=== PATIENT | male | born 2000 | race Caucasian/White ===

== ENCOUNTER 2021-09-04 18:25 | Emergency (ER) | payer BC ==
[~2021-09-04] VITALS: Ht 172.7 cm; Wt 63.5 kg
[2021-09-04 19:02] LABS: BASOPHILS % (AUTO) 0 % (0-10); EOSINOPHILS # (AUTO) 0.1 10^3/uL (0.0-0.3); EOSINOPHILS % (AUTO) 1 % (0-10); HEMATOCRIT 43 % (40-54); HEMOGLOBIN 14.5 g/dL (13.3-17.7); LYMPHOCYTES # (AUTO) 1.4 10^3/uL (1.0-4.0); LYMPHOCYTES % (AUTO) 17 % (12-44); MEAN CORPUSCULAR HEMOGLOBIN 32 pg (25-34); MEAN CORPUSCULAR HGB CONC 34 g/dL (32-36); MEAN CORPUSCULAR VOLUME 94 fL (80-99); MEAN PLATELET VOLUME 9.7 fL (9.0-12.2); MONOCYTES # (AUTO) 0.5 10^3/uL (0.0-1.0); MONOCYTES % (AUTO) 6 % (0-12); NEUTROPHILS # (AUTO) 6.2 10^3/uL (1.8-7.8); NEUTROPHILS % (AUTO) 75 % (42-75); PLATELET COUNT 270 10^3/uL (130-400); WHITE BLOOD COUNT 8.2 10^3/uL (4.3-11.0)
[2021-09-04 19:19] LABS: ALANINE AMINOTRANSFERASE 18 U/L (0-55); ALBUMIN 5.4 GM/DL (3.2-4.5); ALKALINE PHOSPHATASE 127 U/L (40-136); BILIRUBIN,TOTAL 0.2 MG/DL (0.1-1.0); BUN/CREATININE RATIO 11; CALCIUM 10.1 MG/DL (8.5-10.1); CARBON DIOXIDE 26 MMOL/L (21-32); CHLORIDE 99 MMOL/L (98-107); CREATININE SERUM 1.51 MG/DL (0.60-1.30); GFR ESTIMATED 67; GLUCOSE 91 MG/DL (70-105); MAGNESIUM 1.9 MG/DL (1.6-2.4); SODIUM 138 MMOL/L (135-145); TOTAL PROTEIN 8.4 GM/DL (6.4-8.2)
[2021-09-04] MEDS ORDERED: NS IV 1000 ML 1,000 ML IV SCH (20:15)
--- NOTE | 2021-09-04 20:20 | ED General ---
General Chief Complaint: Dizziness/Syncope Stated Complaint: DIZZY,COLD CHILLS,LIGHTHEADED Nursing Triage Note: PT AMBULATE TO ROOM FS03 WITH C/O DIZZYNESS X1 HOUR. Source of Information: Patient History of Present Illness Date Seen by Provider: Sep 04, 2021 Time Seen by Provider: 19:00 Initial Comments Patient is a 21-year-old male with history of chronic daily alcohol use who presents with dizziness upon sitting outside of his bed. Symptoms lasted an hour. Patient reports dizziness with near syncope. Denies chest pain palpitations, shortness of breath. No headache, blurred vision, nausea vomiting or diarrhea. Patient states he drinks in excess of 14 alcoholic beverages daily and has done so at least for the past 3 years. States his symptoms were worse today after working. 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 No other chronic medical illnesses. No other symptoms or complaints. Timing/Duration: 1-3 Hours Severity: Mild Modifying Factors: improves with Other Associated Systoms: Other Allergies and Home Medications Allergies Coded Allergies: No Known Drug Allergies (Unverified , 09/04/21) Patient Home Medication List Home Medication List Reviewed: Yes Review of Systems Review of Systems Constitutional: see HPI EENTM: see HPI Respiratory: see HPI Cardiovascular: see HPI Gastrointestinal: see HPI Genitourinary: see HPI Musculoskeletal: see HPI Skin: see HPI Psychiatric/Neurological: See HPI Hematologic/Lymphatic: See HPI Immunological/Allergic: see HPI All Other Systems Reviewed Negative Unless Noted: Yes Past Phzlfyg-Mfujtm-Ywqcce Hx Patient Social History Tobacco Use?: Yes Smoking Status: Never a Smoker Smokeless Tobacco Frequency: Never a User Use of E-Cig and/or Vaping dev: Yes Use of E-Cig and/or Vaping Cristhian: Current Everyday User Substance use?: No Alcohol Use?: Yes Alcohol type: Beer Alcohol Frequency: Daily Pt feels they are or have been: No Physical Exam Vital Signs Vital Signs - First Documented 09/04/21 18:30 Temp 36.6 Pulse 90 Resp 16 B/P (MAP) 150/91 (110) O2 Delivery Room Air Capillary Refill : Less Than 3 Seconds Height, Weight, BMI Height: '" Weight: lbs. oz. kg; 21.00 BMI Method: General Appearance: No Apparent Distress, WD/WN, Anxious Eyes: Bilateral Eye Normal Inspection, Bilateral Eye PERRL, Bilateral Eye EOMI HEENT: PERRL/EOMI, Normal ENT Inspection, Pharynx Normal Neck: Non Tender Respiratory: Lungs Clear Cardiovascular: Regular Rate, Rhythm Gastrointestinal: Non Tender, Soft Neurologic/Psychiatric: Alert, Oriented x3 Focused Exam Sepsis Stage: Ruled Out Progress/Results/Core Measures Suspected Sepsis SIRS Temperature: Pulse: 90 Respiratory Rate: 16 Laboratory Tests 09/04/21 18:49: White Blood Count 8.2 Blood Pressure 150 /91 Mean: 110 Laboratory Tests 09/04/21 18:49: Creatinine 1.51H, Platelet Count 270, Total Bilirubin 0.2 Results/Orders Lab Results Laboratory Tests Test 09/04/21 18:49 Range/Units White Blood Count 8.2 4.3-11.0 10^3/uL Red Blood Count 4.56 4.30-5.52 10^6/uL Hemoglobin 14.5 13.3-17.7 g/dL Hematocrit 43 40-54 % Mean Corpuscular Volume 94 80-99 fL Mean Corpuscular Hemoglobin 32 25-34 pg Mean Corpuscular Hemoglobin Concent 34 32-36 g/dL Red Cell Distribution Width 12.8 10.0-14.5 % Platelet Count 270 130-400 10^3/uL Mean Platelet Volume 9.7 9.0-12.2 fL Immature Granulocyte % (Auto) 0 % Neutrophils (%) (Auto) 75 42-75 % Lymphocytes (%) (Auto) 17 12-44 % Monocytes (%) (Auto) 6 0-12 % Eosinophils (%) (Auto) 1 0-10 % Basophils (%) (Auto) 0 0-10 % Neutrophils # (Auto) 6.2 1.8-7.8 10^3/uL Lymphocytes # (Auto) 1.4 1.0-4.0 10^3/uL Monocytes # (Auto) 0.5 0.0-1.0 10^3/uL Eosinophils # (Auto) 0.1 0.0-0.3 10^3/uL Basophils # (Auto) 0.0 0.0-0.1 10^3/uL Immature Granulocyte # (Auto) 0.0 0.0-0.1 10^3/uL Sodium Level 138 135-145 MMOL/L Potassium Level 4.0 3.6-5.0 MMOL/L Chloride Level 99 98-107 MMOL/L Carbon Dioxide Level 26 21-32 MMOL/L Anion Gap 13 5-14 MMOL/L Blood Urea Nitrogen 17 7-18 MG/DL Creatinine 1.51 H 0.60-1.30 MG/DL Estimat Glomerular Filtration Rate 67 BUN/Creatinine Ratio 11 Glucose Level 91 70-105 MG/DL Calcium Level 10.1 8.5-10.1 MG/DL Corrected Calcium 8.5-10.1 MG/DL Magnesium Level 1.9 1.6-2.4 MG/DL Total Bilirubin 0.2 0.1-1.0 MG/DL Aspartate Amino Transf (AST/SGOT) 30 5-34 U/L Alanine Aminotransferase (ALT/SGPT) 18 0-55 U/L Alkaline Phosphatase 127 40-136 U/L Total Protein 8.4 H 6.4-8.2 GM/DL Albumin 5.4 H 3.2-4.5 GM/DL My Orders Orders - WEST GAMBINO DO Cbc With Automated Diff (09/04/21 18:56) Comprehensive Metabolic Panel (09/04/21 18:56) Magnesium (09/04/21 18:56) Ns Iv 1000 Ml (Sodium Chloride 0.9%) (09/04/21 20:15) Ekg-Prn For Chest Pain Or Rhyt (09/04/21 20:05) Vital Signs/I&O 09/04/21 18:30 Temp 36.6 Pulse 90 Resp 16 B/P (MAP) 150/91 (110) O2 Delivery Room Air Capillary Refill : Less Than 3 Seconds Blood Pressure Mean: 110 Departure Communication (Admissions) Symptoms consistent with alcohol illness and dehydration. Vital signs stable. Symptoms improved with IV fluids. Recommendations are supportive care, outpatient alcohol rehab with PCP follow-up to recheck labs. Return precautions reviewed. Patient verbalizes understanding agreement discharge instructions prior to departure. Impression Primary Impression: Dizziness Additional Impressions: Acute kidney injury Alcohol abuse Disposition: 01 HOME, SELF-CARE Condition: Stable Departure-Patient Inst. Decision time for Depature: 20:19 Referrals: NO,LOCAL PHYSICIAN (PCP/Family) Primary Care Physician Patient Instructions: Dizziness, Adult ED, Alcohol Use Disorder ED, Acute Kidney Injury Add. Discharge Instructions: You were evaluated in the emergency department for dizziness related to excessive alcohol use, dehydration and kidney injury. Please limit daily alcohol consumption, follow-up with your PCP in 3 to 5 days for reevaluation and establish with an outpatient alcohol rehab. Increase daily water consumption. Return to the ED if new or worsening symptoms. All discharge instructions reviewed with patient and/or family. Voiced understanding. WEST GAMBINO DO Sep 04, 2021 20:20
[2021-09-04 21:14] VITALS: BP 138/69
== END 2021-09-04 21:14 | disposition home or self-care (01) ==
LOC: ER FS 18:27
DX: R42 Dizziness and giddiness (principal); N17.9 Acute kidney failure, unspecified; F10.10 Alcohol abuse, uncomplicated; Z72.0 Tobacco use
CPT/HCPCS: 36415; 80053; 83735; 85025; 93005